=== PATIENT | male | born 1990 | race Caucasian/White ===

== ENCOUNTER 2019-07-30 11:27 | Outpatient (REF) | payer MEDICAID, SELFPAY ==
[2019-07-30 20:02] LABS: Calculated LDL 132 mg/dL; Cholesterol 211 mg/dL (50-200); HDL Cholesterol 49 mg/dL (40-60); Triglyceride 150 mg/dL (30-150)
[2019-08-02 10:36] LABS: HIV-1/2 Ag & Ab Screen Negative (NEGAT)
== END 2019-07-30 11:47 ==
LOC: LBN 11:27
PROVIDERS: PCP Family Medicine; Visit Provider Family Medicine
DX: Z13.220 Encounter for screening for lipoid disorders (principal); Z13.1 Encounter for screening for diabetes mellitus; Z11.4 Encounter for screening for human immunodeficiency virus [HIV]; Z00.00 Encounter for general adult medical examination without abnormal findings
CPT/HCPCS: 80061; 87389; 83036

== ENCOUNTER 2019-08-27 12:01 | Outpatient (REF) | payer MEDICAID, SELFPAY ==
[2019-08-27 18:41] LABS: Anion Gap 9.2 mmol/L (3-11); BUN 16 mg/dL (7-18); CO2 28.8 mmol/L (21.0-32.0); CREATININE 1.02 mg/dL (0.70-1.30); Calcium 9.6 mg/dL (8.5-10.1); Chloride 103 mmol/L (98-107); Glucose 87 mg/dL (74-106); Potassium 4.1 mmol/L (3.5-5.1); Sodium 141 mmol/L (136-145)
== END 2019-08-27 12:21 ==
LOC: NCHCN 12:01
PROVIDERS: PCP Family Medicine; Visit Provider Family Medicine
DX: I10 Essential (primary) hypertension (principal)
CPT/HCPCS: 80048; 84443